=== PATIENT | male | born 1940 | race Caucasian/White ===

== ENCOUNTER → 2017-10-24 | Outpatient (CLI) | payer OTHER | LOC: FIMAGING 10:52 | PROVIDERS: ATTEND Family Medicine | DX: S93.121A Dislocation of metatarsophalangeal joint of right great toe, initial encounter (principal); Z79.899 Other long term (current) drug therapy ==

== ENCOUNTER 2018-02-08 14:45 | Emergency (ER) | payer OTHER ==
--- NOTE | 2018-02-08 16:14 | EDPHY ---
H & P Time Seen by Provider: 02/08/18 15:38 HPI/ROS: Chief complaint. Constipation HPI. 77-year-old male presents emergency department with 3 days of constipation. He notes he is able to patient should push out a bit of stool. He has a history of constipation and has been taking Metamucil. Occasional crampy abdominal pain but he does not have any pain now. Crampiness increases after using a laxative. He has had no vomiting. Last colonoscopy was 4-5 years ago and apparently normal. He has noted a bit of blood in the stool with pushing it out today. ROS Constitutional. no fever/chills, no weakness Eyes. no problems with vision ENT. no sore throat, no nasal drainage Cardiovascular. no chest pain Respiratory. no shortness of breath, no cough Abdominal. Intermittent abdominal pain and constipation with small amount of rectal bleeding . no problems urinating MS. no calf pain/swelling, no neck/back pain, no joint pain Skin. no rash Lymph. no swollen glands Neuro. no headache, no dizziness, no difficulty walking or with speech Past Medical/Surgical History: Cleft palate, herniated discs in back, deaf and left ear Social History: , nonsmoker, no alcohol Smoking Status: Former smoker Physical Exam: General Appearance: Alert well-developed male mild distress vital signs are stable Eyes: Pupils equal and round no pallor or injection. ENT, Mouth: Mucous membranes are moist. Respiratory: There are no retractions, lungs are clear to auscultation. Cardiovascular: Regular rate and rhythm. Gastrointestinal: Abdomen is soft and nontender, no masses, bowel sounds normal. Rectal exam shows brown stool with apparent bloody mucus with it Neurological: Awake and alert, sensory and motor exams grossly normal. Skin: Warm and dry, no rashes. Musculoskeletal: Neck is supple nontender. Extremities symmetrical, full range of motion. Psychiatric: Patient is oriented X 3, there is no agitation. Constitutional: Initial Vital Signs Temperature (C) 37.0 C 02/08/18 14:59 Heart Rate 75 02/08/18 14:59 Respiratory Rate 16 02/08/18 14:59 Blood Pressure 125/69 H 02/08/18 14:59 O2 Sat (%) 97 02/08/18 14:59 O2 Delivery Mode Room Air Allergies/Adverse Reactions: vancomycin Allergy (Severe, Verified 04/01/16 09:25) TONGUE SWELLING Home Medications: Medication Instructions Recorded Aspirin EC [Aspirin EC 81 mg (*)] 81 mg PO DAILY18 11/02/11 Finasteride [Proscar 5 MG (*)] 5 mg PO DAILY18 11/02/11 Lisinopril [Zestril 10 mg (*)] 10 mg PO DAILY18 11/02/11 Gabapentin [Neurontin] 100 mg PO 01/24/16 Pravastatin Sodium [Pravachol] 10 mg PO 01/24/16 Medical Decision Making - Diagnostics Imaging Results: Imaging Impressions Abdomen X-Ray 02/08/18 16:11 Impression: 1. Mild stool in the colon with no acute findings. 2. Degenerative change and dextroscoliosis in the lumbar spine. One-view upright abdomen shows no evidence of free air or air-fluid levels. Mild to moderate constipation. Procedures: IV normal saline ED Course/Re-evaluation: Re-evaluation at 5:15 p.m. Patient, his , and I discussed imaging and lab results. We discussed treatment plan including criteria for return importance of follow-up and further evaluation. They expressed understanding and agreement I consulted discussed case with Dr. Edmonds for Gastroenterology. He agrees with the GoLYTELY. He also would like to encourage the patient to double his daily Metamucil. They will see him in the office for bleeding with stool Differential Diagnosis: Rectal bleeding likely secondary to his constipation bearing down. Previously normal colonoscopy 4-5 years ago. This could represent a colon cancer as well. His vital signs and hemoglobin and hematocrit are stable. Close follow-up with Gastroenterology - Data Points Laboratory Results: Laboratory Results 02/08/18 16:39 02/08/18 16:39 02/08/18 02/08/18 02/08/18 16:39 16:39 16:39 WBC 10.75 10^3/uL H 10^3/uL (3.80-9.50) RBC 5.11 10^6/uL 10^6/uL (4.40-6.38) Hgb 15.8 g/dL g/dL (13.7-17.5) Hct 46.2 % % (40.0-51.0) MCV 90.4 fL fL (81.5-99.8) MCH 30.9 pg pg (27.9-34.1) MCHC 34.2 g/dL g/dL (32.4-36.7) RDW 13.0 % % (11.5-15.2) Plt Count 223 10^3/uL 10^3/uL (150-400) MPV 9.4 fL fL (8.7-11.7) Neut % (Auto) 79.6 % H % (39.3-74.2) Lymph % (Auto) 10.8 % L % (15.0-45.0) Cook % (Auto) 8.7 % % (4.5-13.0) Eos % (Auto) 0.2 % L % (0.6-7.6) Baso % (Auto) 0.4 % % (0.3-1.7) Nucleat RBC Rel Count 0.0 % % (0.0-0.2) Absolute Neuts (auto) 8.57 10^3/uL H 10^3/uL (1.70-6.50) Absolute Lymphs (auto) 1.16 10^3/uL 10^3/uL (1.00-3.00) Absolute Monos (auto) 0.93 10^3/uL H 10^3/uL (0.30-0.80) Absolute Eos (auto) 0.02 10^3/uL L 10^3/uL (0.03-0.40) Absolute Basos (auto) 0.04 10^3/uL 10^3/uL (0.02-0.10) Absolute Nucleated RBC 0.00 10^3/uL 10^3/uL (0-0.01) Immature Gran % 0.3 % % (0.0-1.1) Immature Gran # 0.03 10^3/uL 10^3/uL (0.00-0.10) PT 14.3 SEC SEC (12.0-15.0) INR 1.09 (0.83-1.16) APTT 31.7 SEC SEC (23.0-38.0) Sodium 134 mEq/L L mEq/L (135-145) Potassium 4.2 mEq/L mEq/L (3.3-5.0) Chloride 100 mEq/L mEq/L (97-110) Carbon Dioxide 23 mEq/l mEq/l (22-31) Anion Gap 11 mEq/L mEq/L (8-16) BUN 18 mg/dL mg/dL (7-23) Creatinine 0.9 mg/dL mg/dL (0.7-1.3) Estimated GFR > 60 Glucose 85 mg/dL mg/dL (70-100) Calcium 9.2 mg/dL mg/dL (8.5-10.4) Stool Occult Bld Scrn 02/08/18 16:10 WBC RBC Hgb Hct MCV MCH MCHC RDW Plt Count MPV Neut % (Auto) Lymph % (Auto) Cook % (Auto) Eos % (Auto) Baso % (Auto) Nucleat RBC Rel Count Absolute Neuts (auto) Absolute Lymphs (auto) Absolute Monos (auto) Absolute Eos (auto) Absolute Basos (auto) Absolute Nucleated RBC Immature Gran % Immature Gran # PT INR APTT Sodium Potassium Chloride Carbon Dioxide Anion Gap BUN Creatinine Estimated GFR Glucose Calcium Stool Occult Bld Scrn POSITIVE H (NEGATIVE) Departure - Departure Disposition: Home, Routine, Self-Care Clinical Impression: Constipation, Hematochezia Condition: Good Instructions: Constipation (ED), High Fiber Diet (ED) Additional Instructions: Drink 1 cup of GoLYTELY every 10-15 minutes until having good bowel movements. Return for worsening pain, fever, bleeding. Double your Metamucil Follow-up with Gastroenterology this week for further evaluation of rectal bleeding Referrals: Steph Melton MD [Primary Care Provider] - As per Instructions Luis Eduardo Edmonds MD, FACG [Medical Doctor] - 2-3 days, call for appt.
[2018-02-08 16:48] LABS: PLATELET COUNT 223 10^3/uL (150-400)
[2018-02-08 16:59] LABS: INR 1.09 (0.83-1.16); PROTIME(PATIENT) 14.3 SEC (12.0-15.0)
[2018-02-08] MEDS ORDERED: PEG 3350/NA SULF,BICARB,CL/KCL (GAVILYTE-G) 4000 ML BTL PO ONE (17:24)
[2018-02-08 18:01] VITALS: BP 141/81
== END 2018-02-08 18:00 | disposition home or self-care (01) ==
DX: K59.00 Constipation, unspecified (principal); K92.1 Melena; Z79.82 Long term (current) use of aspirin; Z87.891 Personal history of nicotine dependence

== ENCOUNTER 2018-07-30 10:37 | Emergency (ER) | payer OTHER ==
--- NOTE | 2018-07-30 12:28 | EDPHY ---
H & P Stated Complaint: [facility] fall Time Seen by Provider: 07/30/18 11:32 HPI/ROS: CHIEF COMPLAINT: Right shoulder pain HISTORY OF PRESENT ILLNESS: 78-year-old male presents with right shoulder pain. He tripped and fell forward yesterday morning. He grabbed something behind him with his right arm. Immediate onset of moderate right shoulder pain , which persists today. Pain is very mild, unless he tries to use his arm. He did not fall to the ground. History of prior right shoulder injury, still receiving physical therapy for the prior injury. ROS: No numbness, weakness, excessive bleeding, syncopal episode, other injury. - Personal History Current Tetanus/Diphtheria Vaccine: Yes Tetanus Vaccine Date: 2007 - Medical/Surgical History Hx Asthma: No Hx Chronic Respiratory Disease: No Hx Diabetes: No Hx Cardiac Disease: No Hx Renal Disease: No Hx Cirrhosis: No Hx Alcoholism: No Hx HIV/AIDS: No Hx Splenectomy or Spleen Trauma: No Other PMH: Partial finger amputation status post repair. deaf in left ear. cleft lip (repaired). herniated discs in back - Social History Smoking Status: Former smoker - Physical Exam Exam: Alert and oriented, pleasant Extremities: Right upper extremity-right shoulder is nontender, no swelling, limited abduction and flexion secondary to pain, no deformity, upper arm is nontender, no swelling; elbow and wrist-full range of motion without pain Skin: Intact, no ecchymosis or swelling Neuro: Motor and sensory intact Vascular: Capillary refill brisk distally. Constitutional: Initial Vital Signs Temperature (C) 36.4 C 07/30/18 10:43 Heart Rate 81 07/30/18 10:43 Respiratory Rate 18 07/30/18 10:43 Blood Pressure 119/71 07/30/18 10:43 O2 Sat (%) 94 07/30/18 10:43 O2 Delivery Mode Room Air Allergies/Adverse Reactions: vancomycin Allergy (Severe, Verified 07/30/18 10:47) TONGUE SWELLING Home Medications: Medication Instructions Recorded Aspirin EC [Aspirin EC 81 mg (*)] 81 mg PO DAILY18 11/02/11 Finasteride [Proscar 5 MG (*)] 5 mg PO DAILY18 11/02/11 Lisinopril [Zestril 10 mg (*)] 10 mg PO DAILY18 11/02/11 Gabapentin [Neurontin] 100 mg PO 01/24/16 Pravastatin Sodium [Pravachol] 10 mg PO 01/24/16 Medical Decision Making - Diagnostics Imaging Results: Imaging Impressions Shoulder X-Ray 07/30/18 11:33 Impression: 1. No acute fracture or AC separation. 2. Osteoarthritis and features of rotator cuff impingement. Imaging: I viewed and interpreted images myself ED Course/Re-evaluation: Sling was placed. The patient will follow up with his orthopedic surgeon and physical therapist. Differential Diagnosis: Differential diagnosis includes though it is not limited to fracture, dislocation, tendon disruption, neurovascular compromise. Departure - Departure Disposition: Home, Routine, Self-Care Clinical Impression: Right shoulder strain Qualifiers: Encounter type: initial encounter Qualified Code(s): S46.911A - Strain of unspecified muscle, fascia and tendon at shoulder and upper arm level, right arm , initial encounter Condition: Good Instructions: Rotator Cuff Injury (ED) Additional Instructions: Use the sling for comfort. Ibuprofen 600 mg 3 times daily while the pain persists. Ice for 20 min every 2 hr while pain persists. Follow-up with your orthopedic surgeon and physical therapist. Referrals: Steph Melton MD [Primary Care Provider] - As per Instructions
[2018-07-30 12:45] VITALS: BP 138/72
== END 2018-07-30 12:50 | disposition home or self-care (01) ==
DX: S46.911A Strain of unspecified muscle, fascia and tendon at shoulder and upper arm level, right arm, initial encounter (principal); M19.011 Primary osteoarthritis, right shoulder; W18.40XA Slipping, tripping and stumbling without falling, unspecified, initial encounter

== ENCOUNTER 2019-02-08 09:20 | Emergency (ER) | payer OTHER | END 2019-02-08 11:04 | disposition home or self-care (01) ==